=== PATIENT | male | born 1975 | race Caucasian/White ===

== ENCOUNTER → 2022-11-10 09:09 | Outpatient (CLI) | payer OTHER, SELFPAY ==
--- NOTE | ~2022-11-10 | XR_ITS ---
AP and lateral views of the left hip Clinical history: Pain Findings: No acute fracture or dislocation is seen. Osseous alignment is anatomic. The left hip joint is preserved. Soft tissues are unremarkable. Impression: No significant abnormality is seen. Reviewed, dictated and finalized at location . Impression: No significant abnormality is seen.
== END ==
PROVIDERS: PCP Internal Medicine; Visit Provider Internal Medicine
DX: M25.552 Pain in left hip (principal)
CPT/HCPCS: 73502

== ENCOUNTER 2023-03-20 05:59 | Day surgery (SDC) | payer OTHER, SELFPAY ==
[2023-03-05 14:10] VITALS: BMI 29.7
[2023-03-20 06:21] VITALS: BMI 29.7
[2023-03-20 06:28] VITALS: BP 177/121; PULSE 67; RESP 14; TEMP 36.6; O2SAT 98
--- NOTE | 2023-03-20 07:22 | SUR.PREOP ---
DR LUZ NOTIFIED OF PT'S PREOP BLOOD PRESSURE.
--- NOTE | 2023-03-20 07:26 | P.PNAN_ITS ---
Anes - Initial Pre Proc Eval Procedure: Operation Date: 03/20/23 07:30 Proposed Procedures p Excision Ganglion Cyst Left Volar Wrist - Lauro Osei MD Date/Time: 03/20/23 07:26 Surgeon: Lauro Osei MD Pre Op Diagnosis: Ganglion Cyst Left Volar Wrist Patient Data Age: 47 Gender: M Height: 1.85 m Weight: 102.2 kg Last Vital Signs Temp 36.6 C 03/20/23 06:28 Pulse 67 03/20/23 06:28 Resp 14 03/20/23 06:28 BP 177/121 H 03/20/23 06:28 Pulse Ox 98 03/20/23 06:28 O2 Del Method Room Air 03/20/23 06:28 Allergies Allergy/AdvReac Type Severity Reaction Status Date / Time No Known Allergies Allergy Verified 03/20/23 06:19 Home Medications Medication Instructions Recorded Confirmed Type irbesartan 300 mg tablet 300 mg PO DAILY #90 tabs 10/30/22 03/20/23 Rx omeprazole 10 mg capsule,delayed 10 mg PO DAILY #90 caps 01/08/23 03/20/23 Rx release Patient hx anesthesia problems: none Family hx anesthesia problems: none Results Review: All pre-operative results and documents have been reviewed as part of the pre- operative evaluation. [facility] Family History Family History Mother Patient's mother is in good health Father Patient's father is in good health Social History Social History Smoking status: Never smoker Second hand tobacco smoke exposure: No Alcohol intake: current Drinks per week: 2 Substance use: never Substance use type: does not use Lack of Transportation: No Lack of Food: Never True Current Housing: I Have Housing Concerned About Future Housing: No Difficulty Paying Gas/Electric Bills: No Difficulty Paying for Meds: No Currently Unemployed: No Education: Bachelor's Degree Difficulty w/ Childcare or Family Care: No Living arrangements: with family Spiritual care concerns: No Anes - Eval Final PreProcedure Day of Procedure 03/20/23 07:26 Patient weight: overweight Heart: regular rate and rhythm Lungs: clear to auscultation Airway: Mallampati scale class II Neurological: alert and oriented Last oral intake: >/= 8 hours ASA classification: II Emergent: no Anesthetic plan: proceed Anesthesia type and monitoring: general GIVS and standard monitoring Results Review: All pre-operative results and documents have been reviewed as part of the pre- operative evaluation. Informed Consent: The patient's anesthetic plan and its attendant risks and benefits were discussed with the patient/family/POA. Questions were solicited and answers p rovided to the satisfaction of the patient/family/POA.
[2023-03-20] MEDS: LACTATED RINGERS 1,000 ML 30 ML IV CONT (07:27)
--- NOTE | 2023-03-20 07:30 | WPDHPUPDATE1 ---
History and Physical Update Update Date/Time: 03/20/23 07:30 History and Physical has been reviewed, including an updated exam of the patient. There are NO changes in the patient's condition. Risks, benefits, and alternatives have been discussed and questions answered. Patient agrees to proceed with procedure.
[2023-03-20] MEDS: LIDO 1%/EPINEPHRINE 1:100,000 50 ML VIAL INFILTRATE (08:03)
[2023-03-20 08:29] VITALS: BP 115/83; PULSE 80; RESP 16; O2SAT 100
[2023-03-20 08:39] VITALS: BP 125/107; PULSE 70; RESP 18; O2SAT 97
--- NOTE | 2023-03-20 08:42 | P.OP_ITS ---
Procedure Note - Detailed Date of Procedure 03/20/23 Pre-op Diagnosis Ganglion Cyst Left Volar Wrist Post-op Diagnosis Same Procedure Performed Excision left volar wrist ganglion cyst Surgeon Lauro Osei MD Anesthesia MAC Description of Procedure the site was marked on the patient's Left wrist in the holding area with his consent. He was taken to the operating room where he was placed supine on the operating table. The extremity was prepped on the arm board the usual fashion. The pulmonologist/intensivist IV sedation. A time-out was held and confirmed. The area was marked for incision and exsanguinated and the tourniquet inflated 250 mmHg. The incision was made as marked and the fairly large ganglion cyst running proximally was identified. This was carefully dissected free from the radial artery and larger veins. it was followed to its origin alongside the radial artery. It was avulsed. The tourniquet was released and several bleeding sites were cauterized. The wound was closed with intradermal 4-0 Monocryl sutures and the usual bandage was applied. He was discharged with instructions in wound care and follow-up in stable condition. He has a prescription for hydrocodone 5/325 5. Estimated Blood Loss 2 Drains No Packing No Pathology None sent Complications No immediate complications Condition Stable Disposition Same day
[2023-03-20 08:50] VITALS: BP 121/95; PULSE 68; RESP 18; O2SAT 97
[2023-03-20 09:00] VITALS: BP 120/93; PULSE 62; RESP 18; O2SAT 97
--- NOTE | 2023-03-20 09:28 | WPDANESPN ---
Anes - Prog Note Post-Op Date/Time: 03/20/23 09:28 Cardiovascular status: normal Respiratory status: normal Airway patency: baseline Mental status: baseline Post-Op hydration status: normal Vital Signs: Last Vital Signs Temp 36.6 C 03/20/23 06:28 Pulse 62 03/20/23 09:00 Resp 18 03/20/23 09:00 BP 120/93 H 03/20/23 09:00 Pulse Ox 97 03/20/23 09:00 O2 Del Method Room Air 03/20/23 09:00 Pain Score (VAS): 0 I/O: Intake & Output 03/19/23 03/20/23 03/20/23 23:59 07:59 15:59 Intake Total 800 Balance 800 Patient Feedback: Patient satisfied with anesthetic care.
== END 2023-03-20 09:15 | disposition home or self-care (01) ==
PROVIDERS: PCP Internal Medicine; Visit Provider Plastic Surgery
PROC: (CPT 25111; principal; 2023-03-20 07:30)
DX: M67.432 Ganglion, left wrist (principal)
CPT/HCPCS: 25111

== ENCOUNTER 2024-06-10 14:15 | Outpatient (CLI) | payer OTHER, SELFPAY ==
--- NOTE | ~2024-06-10 | XR_ITS ---
XR chest 2V Ordering provider: Silviano Adams DO History: 48 years Male with . R05.9 - Cough, unspecified . Comparison: None. FINDINGS: MEDIASTINUM: The cardiac silhouette is not enlarged. LUNGS: No infiltrates, effusions or pneumothorax. OTHER: No free air under the diaphragm. IMPRESSION: No acute cardiopulmonary pathology. Reviewed, dictated and finalized at location A.
== END 2024-06-10 14:16 | disposition home or self-care (01) ==
PROVIDERS: PCP Internal Medicine; Visit Provider Internal Medicine
DX: R05.9 Cough, unspecified (principal)
CPT/HCPCS: 71046

== ENCOUNTER 2024-09-08 07:23 | Day surgery (SDC) | payer OTHER, SELFPAY ==
[2024-08-18 14:08] VITALS: BMI 29.7
[2024-09-08 08:15] VITALS: BP 156/107; PULSE 89; RESP 18; TEMP 36.8; O2SAT 97
[2024-09-08] MEDS: LACTATED RINGERS 1,000 ML 150 ML IV CONT (08:15)
[2024-09-08 08:37] VITALS: BP 170/110
--- NOTE | 2024-09-08 08:43 | WPDANESEPPF ---
Anes - Initial Pre Proc Eval Procedure: Operation Date: 09/08/24 10:00 Proposed Procedures p Screening Colonoscopy - Joel Gutiérrez MD Date/Time: 09/08/24 08:43 Surgeon: Joel Gutiérrez MD Pre Op Diagnosis: Neoplasm Screening Patient Data Age: 49 Gender: M Height: 1.85 m Weight: 103.7 kg Last Vital Signs Temp 36.8 C 09/08/24 08:15 Pulse 89 09/08/24 08:15 Resp 18 09/08/24 08:15 BP 170/110 H 09/08/24 08:37 Pulse Ox 97 09/08/24 08:15 O2 Del Method Room Air 09/08/24 08:15 Allergies Allergy/AdvReac Type Severity Reaction Status Date / Time No Known Allergies Allergy Verified 09/08/24 08:02 Home Medications ?Medication ?Instructions ?Recorded ?Confirmed ?Type irbesartan 300 mg tablet 300 mg PO DAILY #90 tabs 11/27/23 09/08/24 Rx omeprazole 10 mg capsule,delayed 10 mg PO DAILY #90 caps 03/04/24 09/08/24 Rx release nifedipine 30 mg tablet,extended 30 mg PO DAILY #90 tabs 06/16/24 09/08/24 Rx release Patient hx anesthesia problems: none Family hx anesthesia problems: none Results Review: All pre-operative results and documents have been reviewed as part of the pre-operative evaluation. [facility] Past Medical History Medical History (Updated 09/08/24 @ 08:44 by Cameron Zambrano MD) Essential (primary) hypertension Obesity, Class I, BMI 30-34.9 Surgical History Surgical History (Updated 09/08/24 @ 08:44 by Cameron Zamrbano MD) H/O hernia repair S/P excision of ganglion cyst Family History Family History Mother Patient's mother is in good health Father Patient's father is in good health Social History Social History Smoking status: Never smoker Second hand tobacco smoke exposure: No Alcohol intake: current Drinks per week: 2 Substance use: never Substance use type: does not use Lack of Transportation: No Lack of Food: Never True Current Housing: I Have Housing Concerned About Future Housing: No Difficulty Paying Gas/Electric Bills: No Difficulty Paying for Meds: No Currently Unemployed: No Education: Bachelor's Degree Difficulty w/ Childcare or Family Care: No Living arrangements: with family Spiritual care concerns: No Anes - Eval Final PreProcedure Day of Procedure 09/08/24 08:43 Patient weight: obese Heart: regular rate and rhythm Lungs: clear to auscultation Airway: Mallampati scale class II Neurological: alert and oriented Last oral intake: >/= 8 hours ASA classification: II Emergent: no Anesthetic plan: proceed Anesthesia type and monitoring: general GIVS and standard monitoring Results Review: All pre-operative results and documents have been reviewed as part of the pre-operative evaluation. Informed Consent: The patient's anesthetic plan and its attendant risks and benefits were discussed with the patient/family/POA. Questions were solicited and answers provided to the satisfaction of the patient/family/POA.
--- NOTE | 2024-09-08 09:00 | PM.IMHP ---
H&P: HPI History of Present Illness Date/Time: 09/08/24 09:00 Chief Complaint: Screening colonoscopy Narrative: This is the patient's first colonoscopy. There are no GI symptoms and there is no family history of colorectal cancer. Review of Systems Review of Systems: All systems reviewed & are unremarkable except as noted in HPI and below PMFSH Past Medical History Medical History (Updated 09/08/24 @ 09:02 by Joel Gutiérrez MD) Essential (primary) hypertension Obesity, Class I, BMI 30-34.9 Surgical History Surgical History (Updated 09/08/24 @ 08:44 by Cameron Zambrano MD) H/O hernia repair S/P excision of ganglion cyst Family History Family History Mother Patient's mother is in good health Father Patient's father is in good health Social History Social History Smoking status: Never smoker Second hand tobacco smoke exposure: No Alcohol intake: current Drinks per week: 2 Substance use: never Substance use type: does not use Lack of Transportation: No Lack of Food: Never True Current Housing: I Have Housing Concerned About Future Housing: No Difficulty Paying Gas/Electric Bills: No Difficulty Paying for Meds: No Currently Unemployed: No Education: Bachelor's Degree Difficulty w/ Childcare or Family Care: No Living arrangements: with family Spiritual care concerns: No Meds Home Medications and Allergies Home Medications ?Medication ?Instructions ?Recorded ?Confirmed ?Type irbesartan 300 mg tablet 300 mg PO DAILY #90 tabs 11/27/23 09/08/24 Rx omeprazole 10 mg capsule,delayed 10 mg PO DAILY #90 caps 03/04/24 09/08/24 Rx release nifedipine 30 mg tablet,extended 30 mg PO DAILY #90 tabs 06/16/24 09/08/24 Rx release Allergies Allergy/AdvReac Type Severity Reaction Status Date / Time No Known Allergies Allergy Verified 09/08/24 08:02 Vital Signs Vital Signs - 24 hr 09/08/24 08:15 09/08/24 08:37 Temperature 98.2 F Pulse Rate 89 Respiratory Rate 18 Blood Pressure 156/107 H 170/110 H Pulse Oximetry 97 Oxygen Delivery Room Air Exam Const: General: cooperative and healthy appearing Resp: Effort & Inspection: normal respiratory effort and able to speak in complete sentences Auscultation: clear to auscultation bilaterally Cardio: Rate: regular rate Rhythm: regular rhythm GI: Inspection: normal to inspection GI Palp: No No hepatosplenomegaly present Auscultation: normal bowel sounds Rectal Exam: deferred Skin: General skin exam: normal color Psych: Appearance: grossly normal Mental Status: mental status grossly normal Assessment and Plan Assessment and plan (1) Encounter for screening colonoscopy: Code(s): Z12.11 - Encounter for screening for malignant neoplasm of colon Status: Acute Assessment and Plan: The patient is deemed a good candidate for the procedure. Consent signed. Will proceed.
[2024-09-08 09:27] VITALS: BP 136/94; PULSE 87; RESP 14; O2SAT 99
[2024-09-08 09:37] VITALS: BP 129/84; PULSE 79; RESP 15; O2SAT 97
[2024-09-08 09:47] VITALS: BP 126/92; PULSE 69; RESP 14; O2SAT 97
--- NOTE | 2024-09-08 09:57 | WPDANESPN ---
Anes - Prog Note Post-Op Date/Time: 09/08/24 09:57 Cardiovascular status: normal Respiratory status: normal Airway patency: baseline Mental status: baseline Vital Signs: Last Vital Signs Temp 36.8 C 09/08/24 08:15 Pulse 69 09/08/24 09:47 Resp 14 09/08/24 09:47 BP 126/92 H 09/08/24 09:47 Pulse Ox 97 09/08/24 09:47 O2 Del Method Room Air 09/08/24 09:47 Pain Score (VAS): 0/10 I/O: Intake & Output 09/07/24 09/08/24 09/08/24 23:59 07:59 15:59 Intake Total 900 Balance 900 Patient Feedback: Patient satisfied with anesthetic care.
== END 2024-09-08 09:55 ==
PROVIDERS: PCP Internal Medicine; Referring Provider Internal Medicine; Visit Provider Internal Medicine Gastroenterology
PROC: 0DJD8ZZ Inspection of Lower Intestinal Tract, Via Natural or Artificial Opening Endoscopic (ICD-10-PCS; CPT 45378; principal; 2024-09-08 10:00)
DX: Z12.11 Encounter for screening for malignant neoplasm of colon (principal)
CPT/HCPCS: 45378